=== PATIENT | female | born 1995 | race Caucasian/White ===

== ENCOUNTER 2017-03-25 09:45 | Emergency (ER) | payer MEDICAID ==
[~2017-03-25] VITALS: Ht 157.5 cm; Wt 72.6 kg
[2017-03-25 09:48] VITALS: BP_SYST 124
[2017-03-25 10:47] VITALS: BP_SYST 124
== END 2017-03-25 10:47 | disposition home or self-care (01) ==
LOC: SED 09:45
DX: L03.213 Periorbital cellulitis (principal); J45.909 Unspecified asthma, uncomplicated
CPT/HCPCS: 99283

== ENCOUNTER 2017-07-05 17:56 | Emergency (ER) | payer MEDICAID ==
[~2017-07-05] VITALS: Ht 157.5 cm; Wt 74.4 kg
[2017-07-05 18:01] VITALS: BP_SYST 137
[2017-07-05] MEDS ORDERED: KETOROLAC TROMETHAMINE 60 MG/2 ML VIAL IM ONE (18:30)
[2017-07-05 19:05] VITALS: BP_SYST 135
== END 2017-07-05 19:02 | disposition home or self-care (01) ==
LOC: SED 17:56
DX: S93.602A Unspecified sprain of left foot, initial encounter (principal); J45.909 Unspecified asthma, uncomplicated; R03.0 Elevated blood-pressure reading, without diagnosis of hypertension; X58.XXXA Exposure to other specified factors, initial encounter; Y93.89 Activity, other specified; Y92.89 Other specified places as the place of occurrence of the external cause; Y99.8 Other external cause status
CPT/HCPCS: 73630; 81025; 96372; 99284; J1885